=== PATIENT | female | born 1985 | race Caucasian/White ===

== ENCOUNTER → 2018-01-10 | Outpatient (CLI) | payer BC ==
[2014-11-05 14:42] VITALS: BMI 29.0
[~2018-01-10] MED LIST: ACET-1718 PO; IBUP800T37 PO; OMEP40CA48 PO; [UNRECOGNIZED DRUG - CODE] IM
[2018-01-10 10:07] LABS: PLATELET COUNT, AUTOMATED 193 K/uL (150-450)
== END ==
LOC: LAB 09:26
PROVIDERS: ATTEND Student in an Organized Health Care Education/Training Program
DX: Z34.91 Encounter for supervision of normal pregnancy, unspecified, first trimester (principal); B96.89 Other specified bacterial agents as the cause of diseases classified elsewhere
CPT/HCPCS: 36415; 81001; 85025; 86592; 86762; 86787; 86850; 86900; 86901; 87088; 87340

== ENCOUNTER → 2018-02-02 | Outpatient (CLI) | payer BC ==
[2014-11-05 14:42] VITALS: BMI 29.0
== END ==
LOC: LAB 10:00
PROVIDERS: ATTEND Obstetrics & Gynecology
DX: O36.80X0 Pregnancy with inconclusive fetal viability, not applicable or unspecified (principal)
CPT/HCPCS: 36415; 84702

== ENCOUNTER 2018-02-04 09:55 | Day surgery (SDC) | payer BC ==
[2014-11-05 14:42] VITALS: Ht 157.5 cm; Wt 54.0 kg
[~2018-02-04] VITALS: Ht 157.5 cm; Wt 54.0 kg
[~2018-02-04 09:55] MED LIST changes: -DOXY-229 PO; -HYDR-4309 PO
[2018-02-04 12:34] VITALS: BP 114/73
[2018-02-04] MEDS ORDERED: SCOPOLAMINE 1.5 MG PATCH TD ONE (13:00)
[2018-02-04] MEDS ORDERED: MIDAZOLAM 2 MG/2 ML VIAL IVP PRN (13:00)
[2018-02-04] MEDS ORDERED: APREPITANT 40 MG CAP PO ONE (13:00)
[2018-02-04] MEDS ORDERED: NORMOSOL R SOLN(*) 1000 ML BAG 1,000 ML IV PRN (13:00)
[2018-02-04] MEDS ORDERED: DOXYCYCLINE HYCL 100 MG TAB PO ONE (13:00)
[2018-02-04] MEDS ORDERED: FAMOTIDINE 20 MG TAB PO ONE (13:00)
[2018-02-04] MEDS ORDERED: LIDOCAINE/SOD BICARB 8.4% SYR ID ONE (13:00)
[2018-02-04] MEDS ORDERED: fentaNYL CITR 100 MCG/2 ML AMP ONE (13:17)
[2018-02-04] MEDS ORDERED: PROPOFOL EMUL(*) 10MG/ML 20 ML 20 ML ONE (13:18)
[2018-02-04] MEDS ORDERED: ONDANSETRON 4 MG/2 ML VIAL ONE (13:18)
[2018-02-04] MEDS ORDERED: SUGAMMADEX SOD 500 MG/5 ML SDV ONE (13:18)
[2018-02-04] MEDS ORDERED: LIDOCAINE MPF 1% 5 ML VIAL ONE (13:18)
[2018-02-04] MEDS ORDERED: DEXAMETHASONE SOD PHOS 10MG/ML ONE (13:18)
[2018-02-04] MEDS ORDERED: ROCURONIUM BROM 10 MG/ML 10 ML ONE (13:18)
[2018-02-04] MEDS ORDERED: ePHEDrine 25 MG/5 ML DISP.SYR IVP ONE (14:30)
[2018-02-04] MEDS ORDERED: LR(*) 1000 ML BAG 1,000 ML IV ONE (14:54)
[2018-02-04] MEDS ORDERED: ONDANSETRON 4 MG/2 ML VIAL IVP PRN (14:55)
--- NOTE | 2018-02-04 15:02 | Post Operative Note ---
Operative Note - ENTRY LEVEL ACCOUNTANT Operative Day Date: Feb 04, 2018 Time: 14:55 Physicians Surgeon: Reed Reardon Anesthesia: GET Diagnosis Pre-Op Diagnosis: 32 y/o @ 9 weeks gestation Missed AB Post-Op Diagnosis: same Procedure Findings: Uterus 8-9 week size. Spotting from cervix noted at start of procedure. Sound 8 cm. Bleeding minimal post operatively Procedure(s): Suction D&C Specimen Removed:(Maybe N/A): Products of Conception Complications: 0 known Fluids Fluids: 1700 cc LR u/0 50 cc Estimated Blood Loss: 100 Dictated Date OP Note Dictated: Feb 04, 2018 REED REARDON DO Feb 04, 2018 15:02
[2018-02-04] MEDS ORDERED: DOXY-229 PO (15:05)
[2018-02-04] MEDS ORDERED: IBUP800T37 PO (15:05)
[2018-02-04] MEDS ORDERED: HYDR-4309 PO (15:05)
--- NOTE | 2018-02-04 15:08 | OB/GYN Discharge Summary ---
Discharge Summary Reason for Hosp/Final Diag: (1) Missed Status: Acute Hospital Course & Plan: Pt presented for a scheduled D&C. Underwent procedure with out any difficulty. See operative report for details of procedure. Pt was discharged home once ambulatory, voiding, and tolerating po intake. Lates Vital Signs Vital Signs Date Time Temp Pulse Resp B/P (MAP) Pulse Ox O2 Delivery O2 Flow Rate FiO2 02/04/18 12:34 98.4 56 16 114/73 (87) 95 Room Air Weight (Pounds): 119 Condition: Improved Discharge: Home Home Meds Active Scripts Hydrocodone Bit/Acetaminophen (NORCO 5-325 TABLET) 1 Each Tablet, 1 EACH PO Q4- 6H Y for PAIN, #10 TAB 0 Refills Prov:REED FAN DO 02/04/18 Reported Medications Betamethasone 12 MG VIAL (Betamethasone 12 mg/2 ml-Water) Unknown Strength Vial , IM NOW, VIAL IM now, repeat in 24 hours 12/03/17 Discontinued Scripts Omeprazole (OMEPRAZOLE) 40 Mg Capsule., 40 MG PO QDAY for 30 Days, #30 CAP Prov:RAINER MANN JR, MD 12/02/17 [facility] [phone], Dr. Pascual [phone] Follow up in: 2 wks PO Discharge Diet: As Tolerates, Resume Prior Admit Diet, Increase Fluid Intake Discharge Activity: As Tolerates, Pelvic Rest REED FAN DO Feb 04, 2018 15:08
[2018-02-04 15:30] VITALS: BP 125/64
[2018-02-04 16:00] VITALS: BP 112/59
[2018-02-04 16:30] VITALS: BP 115/61
[2018-02-04 16:32] VITALS: BP 112/55
[2018-02-04] MEDS ORDERED: IBUPROFEN 800 MG TAB PO SCH (17:00)
--- NOTE | 2018-02-04 17:02 | OPERATIVE REPORT 1 ---
EVENT DATE: February 04, 2018 SURGEON: Topher Reardon DO ANESTHESIOLOGIST: Yazan Victor MD ANESTHESIA: General endotracheal intubation. PREOPERATIVE DIAGNOSES 1. A 32-year-old 2, para 1, at 9 weeks' gestation. 2. Missed . POSTOPERATIVE DIAGNOSES 1. A 32-year-old 2, para 1, at 9 weeks' gestation. 2. Missed . 3. Delivered. PROCEDURE PERFORMED Suction dilatation and curettage. FINDINGS Uterus 8 to 9 weeks' size. There was spotting noted from cervix at start of procedure. Hemostasis noted postoperatively. PATHOLOGY Products of conception. ESTIMATED BLOOD LOSS 100 mL INTRAVENOUS FLUIDS Lactated Ringer's 1700 mL URINE OUTPUT 50 mL COMPLICATIONS None known. CONDITION Stable times one to PACU, then recovery. COUNTS Correct times two for all needles, laps, sponges, and instruments. INDICATIONS AND CONSENT The patient is a 32-year-old 2, para 1, who presented to clinic earlier this week for a new OB visit. She was expected to be 9 weeks' . She underwent vaginal ultrasound that showed a gestational sac with a yoke sac. She underwent quantitative hCG measuring that was greater than 100,000. Repeat hCG showed a decreasing quantitative hCG. Patient was counseled on the options for management to include: 1) Expectant management which would allow for the natural spontaneous passing of products of conception. 2) The second option was medical management which would speed up the natural process. This would be done by taking some pills at home which would cause increased bleeding, but patient would be able to miscarry in the comfort of her own home. 3) The third option was a surgical option. This would require the patient to go to the operating room, go to sleep for the surgical procedure secondary to pain and discomfort with the procedure. Patient opted for surgical procedure as she [place] be [place] out of the [place] and wanted to have everything resolved as soon as possible. Patient was counseled and consented appropriately. She was scheduled for suction D and C. DESCRIPTION OF PROCEDURE The patient was taken to the operating room where she was placed in the dorsal supine position. She then underwent general endotracheal intubation. Once anesthesia was achieved, she was placed in the dorsal lithotomy position. She was prepped and draped in the usual sterile manner. A straight catheter was then used to drain the bladder. A single valve speculum was placed in the vagina. Cervix was easily visualized and grasped with an Allis clamp. Uterus was sounded to approximately 8 cm. The cervix was dilated by using sequential dilation with a Hegar dilator. Once at a 9, an 8 suction curette was asked for. Suction curette was easily placed through cervix. Suction was turned on. Curette was applied in a circumferential manner in the uterus on multiple passes until bleeding was noted to be minimal. Once bleeding was minimal, the procedure was terminated. The patient had the Allis clamp removed. The cervix was visualized with minimal bleeding noted postoperatively. Speculum was removed from the vagina. The patient was cleaned. She was then awoken and transferred to the recovery room in stable condition [facility]
== END 2018-02-04 15:25 | disposition home or self-care (01) ==
LOC: OR 09:55
PROVIDERS: ATTEND Student in an Organized Health Care Education/Training Program
DX: O02.1 Missed abortion (principal)
CPT/HCPCS: 59820; 88305; J1100; J2001; J2250; J2405; J2704; J3010; J8501

== ENCOUNTER → 2018-02-04 | Outpatient (CLI) | payer BC ==
[2014-11-05 14:42] VITALS: BMI 29.0
[~2018-02-04] MED LIST changes: +DOXY-229 PO; +HYDR-4309 PO
== END ==
LOC: LAB 07:11
PROVIDERS: ATTEND Obstetrics & Gynecology
DX: O36.80X0 Pregnancy with inconclusive fetal viability, not applicable or unspecified (principal)
CPT/HCPCS: 36415; 84702

== ENCOUNTER → 2018-04-25 | Outpatient (CLI) | payer BC ==
[2014-11-05 14:42] VITALS: BMI 29.0
[~2018-04-25] MED LIST changes: +BETA15CR36 TP; +DOXY-229 PO; +HYDR-4309 PO
[2018-04-25 09:42] LABS: PLATELET COUNT, AUTOMATED 209 K/uL (150-450)
== END ==
LOC: LAB 08:14
PROVIDERS: ATTEND Obstetrics & Gynecology
DX: Z34.91 Encounter for supervision of normal pregnancy, unspecified, first trimester (principal)
CPT/HCPCS: 36415; 81001; 85025; 86592; 86703; 86762; 86850; 86900; 86901; 87088; 87340

== ENCOUNTER → 2018-05-18 | Outpatient (CLI) | payer BC ==
[2014-11-05 14:42] VITALS: BMI 29.0
== END ==
LOC: LAB 08:43
PROVIDERS: ATTEND Obstetrics & Gynecology
DX: Z34.91 Encounter for supervision of normal pregnancy, unspecified, first trimester (principal); Z11.3 Encounter for screening for infections with a predominantly sexual mode of transmission; Z11.4 Encounter for screening for human immunodeficiency virus [HIV]
CPT/HCPCS: 87491; 87591

== ENCOUNTER → 2018-07-13 | Outpatient (CLI) | payer BC ==
[2014-11-05 14:42] VITALS: BMI 29.0
[~2018-07-13] MED LIST changes: +FLU60SYR36 IM; -HYDR-4309 PO; +HYDR-653 PO; +PREN-127 PO
== END ==
LOC: LAB 10:43
PROVIDERS: ATTEND Obstetrics & Gynecology
DX: O09.522 Supervision of elderly multigravida, second trimester (principal)
CPT/HCPCS: 36415; 82105

== ENCOUNTER → 2018-08-15 | Outpatient (CLI) | payer BC ==
[2014-11-05 14:42] VITALS: BMI 29.0
--- NOTE | 2018-08-15 16:54 | RADIOLOGY IMAGING REPORT ---
FACILITY: [facility] PATIENT NAME: Giselle Alves : 1985 MR: [id number] V: [id number] EXAM DATE: ORDERING PHYSICIAN: TOI BUCKLEY TECHNOLOGIST: Location: [facility] Patient: Giselle Alves : 1985 Visit/Account:[id number] Date of Sevice: 08/15/2018 ADDENDUM #1 The estimated due date was apparently reported incorrectly by technologist notation. The correct ges tational age by LMP is 20 weeks and five days.. The BPD measurement was re-imaged by technologist soila brooks and the value was changed from 4.76 cm to 4.[address] the estimated gestational age by measurements at 20 weeks and four days which corresponds to the estimated gestational age by LMP of 20 weeks and five days. Additional changes are as follow s: BPD: 28th percentile HC: 34th percentile AC.: 41st percentile FL: 40th percentile Estimated weight 367 g +/- 54 g, 40th percentile percentile Report Dictated By: Liss Hood MD at 08/16/2018 3:25 PM Report E-Signed By: Liss Hood MD at 08/16/2018 3:39 PM ORIGINAL REPORT [facility] OB ANATOMICAL SURVEY HISTORY: Anatomic survey COMPARISON: None. TECHNIQUE: Transabdominal imaging was performed for assessment of the fetus and maternal pelvic s tructures. Transvaginal imaging was not performed. FINDINGS: Intrauterine gestations: One. presentation: Breech., Variable heart rate: 142 bpm. Amniotic fluid volume: Normal; GHAZAL 15.13 cm; MVP 4.08 cm. Placenta: Anterior. Uterus: Gravid, otherwise grossly unremarkable where visualized. Maternal adnexa/ovaries: Grossly unremarkable, ovaries not visualized. Cervix: Grossly long and closed. Gestational Parameters: BPD: 4.76 cm, 10th percentile HC: 18.22 cm, 8th percentile AC: 15.46 in meters, 16th percentile FL: 3.4 cm, 14th percentile Average ultrasound age (AUA): 20 weeks/ five days Estimated age based on LMP: 21 weeks/ four days Estimated weight (EFW): 368 grams +/- 54 grams, 9th percentile Anatomic Survey: Intracranial structures, 4-chamber heart, stomach, kidneys, urinary bladder, spine, 3-vessel cord and cord insertion are unremarkable. Two upper and two lower extremities visualized. IMPRESSION: Single viable fetus in variable breech presentation with an estimated gestational age of 20 weeks and five days by measurements. Estimated gestational age by LMP is 21 weeks and four days. Estimated f etal weight is 368 g, 9th percentile Report Dictated By: Liss Hood MD at 08/15/2018 4:42 PM Report E-Signed By: Liss Hood MD at 08/15/2018 4:49 PM DELILAHN:ADIN
== END ==
LOC: RAD 08:00
PROVIDERS: ATTEND Obstetrics & Gynecology
DX: O09.522 Supervision of elderly multigravida, second trimester (principal)

== ENCOUNTER → 2018-10-05 | Outpatient (CLI) | payer BC ==
[2014-11-05 14:42] VITALS: BMI 29.0
[~2018-10-05] MED LIST changes: +DIPH0.5D12 IM
[2018-10-05 09:46] LABS: PLATELET COUNT, AUTOMATED 151 K/uL (150-450)
== END ==
LOC: LAB 08:17
PROVIDERS: ATTEND Obstetrics & Gynecology
DX: Z34.92 Encounter for supervision of normal pregnancy, unspecified, second trimester (principal)
CPT/HCPCS: 36415; 82950; 85025

== ENCOUNTER → 2018-11-30 | Outpatient (CLI) | payer BC ==
[2014-11-05 14:42] VITALS: BMI 29.0
[~2018-11-30] MED LIST changes: -DIPH0.5D12 IM; +DIPH0.5S2 IM
== END ==
LOC: LAB 10:16
PROVIDERS: ATTEND Obstetrics & Gynecology
DX: Z36.85 Encounter for antenatal screening for Streptococcus B (principal)
CPT/HCPCS: 87081

== ENCOUNTER 2018-12-21 14:01 | Outpatient (CLI) | payer BC ==
[~2018-12-21] VITALS: Ht 157.5 cm; Wt 68.9 kg
[2018-12-21 14:45] VITALS: BP 136/61; Ht 157.5 cm; Wt 68.9 kg
== END 2018-12-21 16:00 | disposition home or self-care (01) ==
LOC: L&D 14:01 → UNDOADMIN 14:01 → OB 14:01 → L&D 16:00 → UNDODISIN 16:00 → EDSTATUS 12-23 07:07
PROVIDERS: ATTEND Obstetrics & Gynecology
DX: O47.1 False labor at or after 37 completed weeks of gestation (principal); Z3A.39 39 weeks gestation of pregnancy
CPT/HCPCS: 84112; 99213

== ENCOUNTER 2018-12-28 12:20 | Outpatient (CLI) | payer BC ==
[~2018-12-28] VITALS: Ht 157.5 cm; Wt 72.1 kg
[2018-12-28 12:44] VITALS: BP 110/68; BMI 29.1
[2018-12-29 05:03] VITALS: Ht 157.5 cm; Wt 72.1 kg
[2018-12-29] MEDS ORDERED: IBUP800T37 PO (21:11)
[2018-12-29] MEDS ORDERED: LOR5/325 PO (21:11)
[2019-01-10] MEDS ORDERED: MISO200T59 PV (09:38)
[2019-01-10] MEDS ORDERED: METH0.2T6 PO (09:38)
== END 2018-12-28 14:09 | disposition home or self-care (01) ==
LOC: OB 12:20 → L&D 12:20 → OB 12:20 → UNDOADMIN 12:20 → L&D 14:09 → UNDODISIN 14:09 → EDSTATUS 12-30 16:08
PROVIDERS: ATTEND Obstetrics & Gynecology
DX: O26.893 Other specified pregnancy related conditions, third trimester (principal); Z3A.39 39 weeks gestation of pregnancy
CPT/HCPCS: 59025; 84112; 99213

== ENCOUNTER 2018-12-29 04:23 | Inpatient (IN) | payer BC ==
[~2018-12-29] VITALS: Ht 157.5 cm; Wt 69.4 kg
[2018-12-29 05:03] VITALS: Ht 157.5 cm; Wt 69.4 kg
[2018-12-29 05:20] VITALS: BP 119/56
[2018-12-29] MEDS: LR(*) 1000 ML BAG 1,000 ML IV PRN ×3 (05:57→14:47)
[2018-12-29 06:02] LABS: PLATELET COUNT, AUTOMATED 129 K/uL (150-450)
[2018-12-29] MEDS ORDERED: LR(*) 1000 ML BAG 1,000 ML IV SCH (06:18)
[2018-12-29] MEDS ORDERED: ceFAZolin(*) 2GM/D5W 50ML 50 ML IVPB PRN (06:18)
[2018-12-29] MEDS ORDERED: FAMOTIDINE(*) 20MG/50ML PREMIX 50 ML IVPB PRN (06:18)
[2018-12-29] MEDS ORDERED: OXYTOCIN 30 UNIT/NS 500 ML 500 ML IV PRN ×2 (06:18→10:00)
[2018-12-29] MEDS ORDERED: METOCLOPRAMIDE 10 MG/2 ML SDV IVP PRN (06:20)
[2018-12-29] MEDS ORDERED: LIDOCAINE 1% LOCAL 300 MG/30ML INJ PRN (06:20)
[2018-12-29] MEDS ORDERED: fentaNYL CITR 100 MCG/2 ML AMP IVP PRN (06:20)
[2018-12-29] MEDS ORDERED: MISOPROSTOL 25 MCG CAP PO ONE (06:40)
[2018-12-29] MEDS ORDERED: MISOPROSTOL 25 MCG CAP ONE (06:41)
[2018-12-29] MEDS ORDERED: MISOPROSTOL 100 MCG TAB PO ONE (06:45)
[2018-12-29] MEDS ORDERED: MISOPROSTOL 100 MCG TAB ONE (06:49)
[2018-12-29] MEDS ORDERED: FENTANYL/ROPIVACAINE 100 ML BAG EPI PRN (07:15)
[2018-12-29] MEDS ORDERED: CITRIC ACID/SOD CIT 15 ML UDC PO PRN (07:15)
[2018-12-29] MEDS ORDERED: LIDOCAINE/PF 2% 200MG/10ML AMP 200 MG/10 ML AMPUL EPI PRN (07:15)
[2018-12-29] MEDS ORDERED: BUPIVACAINE 0.25% MPF INJ EPI PRN (07:15)
[2018-12-29] MEDS ORDERED: BUPIVACAINE 0.5% INJ 30ML VIAL EPI PRN (07:15)
[2018-12-29] MEDS ORDERED: LIDO/EPI 2% MPF 1:200,000 20ML EPI PRN (07:15)
[2018-12-29] MEDS ORDERED: ONDANSETRON 4 MG/2 ML VIAL IVP PRN (07:15)
[2018-12-29] MEDS ORDERED: fentaNYL CITR 100 MCG/2 ML AMP IT PRN (07:15)
[2018-12-29] MEDS ORDERED: TERBUTALINE SULF 1 MG/ML VIAL SUBQ PRN (08:50)
[2018-12-29] MEDS ORDERED: SERTRALINE HCL 50 MG TAB PO SCH (09:00)
[2018-12-29] MEDS ORDERED: FERROUS GLUCONATE 324 MG TAB PO SCH (09:00)
[2018-12-29] MEDS ORDERED: ePHEDrine 25 MG/5 ML DISP.SYR IVP ONE (11:40)
--- NOTE | 2018-12-29 12:23 | History & Physical ---
History of Present Illness : 3 Para or TPAL: 1 EDC per U/S: December 29, 2018 Estimated Gestational Age: 40.0 Chief Complaint Leaking fluid History of Present Illness 33-year-old presents at 40 weeks with SROM. She 1st started noticing leaking of fluid this morning. She is having some contractions, but nothing significant. She is also having some light vaginal bleeding. She reports good movement. She denies any preeclampsia symptoms. Her care is by IMG. is complicated by AMA (normal [id number]). She is GBS negative. History Patient's Blood Type: A Positive Rubella Status: Immune Group B Strep Screen: Negative Obstetrical History: G1: 2015: (7#3oz) G2: 2018: SAB G3: Current Allergies: Coded Allergies: No Known Drug Allergies (Unverified , 11/05/14) Social History: No T/E/D. . Family History: Patient reports no known family medical history. Med Rec Home Meds Reported Medications Vits W-Ca,Fe,Fa(<1MG) ( VITAMINS) 1 Each Tablet, 1 EACH PO DAILY, TAB 06/01/18 Review of Systems Constitutional: No Fever Neurological: No Syncope Eyes: No Vision Change Cardiovascular: No Chest Pain Respiratory: No Shortness of Breath, No Cough Gastrointestinal: No Nausea, No Vomiting, No Diarrhea Genitourinary: No Dysuria Musculoskeletal: No Pain Psychiatric: No Depression, No Anxiety Exam General Exam Vital Signs Vital Signs Date Time Temp Pulse Resp B/P (MAP) Pulse Ox O2 Delivery O2 Flow Rate FiO2 12/29/18 05:20 97.9 62 20 119/56 (77) 97 Room Air General Apperance: Alert/Awake/No Acute Distress Neuro: No Gross deficits Eyes: Normal Extraocular Movement & Vison Cardiovascular: Regular Rate and Rhythm Respiratory: No Respiratory Distress, Clear to Auscultation Abdomen: Gravid - Non-Tender : Normal Musculoskeletal: No Weakness/Pain Extremities: No Cyanosis,Clubbing or Edema Integumentary: Skin Intact without Lesions or Rash Psychological: Alert & Oriented X3, Appropriate Mood & Affect Vaginal Discharge/Fluid?: Bloody Show, Clear Fluid Cervical Dialation: 3 Cervical Effacement (%): 50 Cervical Consistency: Soft Cervical Position: Posterior Station: -2 Presentation: Vertex Uterine Contractions(Q min): 10 Uterine Contraction Strength: Mild UC Resting Tone: Soft Fetus Feeling Movement?: Yes FHT Category: I Medical Decision Making Data Points Result Diagram: 12/29/18 0543 Assessment and Plan Problems: (1) SROM (spontaneous rupture of membranes) Assessment & Plan: 33-year-old presents at 40 weeks with SROM. (2) 40 weeks gestation of TOI BUCKLEY MD December 29, 2018 07:45
--- NOTE | 2018-12-29 12:51 | Labor Progress Note ---
Labor Subjective Progress Notes Subjective Patient requested an epidural. Otherwise, no concerns. Labor Objective Vital Signs Vital Signs Date Time Temp Pulse Resp B/P (MAP) Pulse Ox O2 Delivery O2 Flow Rate FiO2 12/29/18 05:20 97.9 62 20 119/56 (77) 97 Room Air Vaginal Discharge/Fluid?: Clear Fluid Cervical Dialation: 5 Cervical Effacement (%): 70 Cervical Consistency: Soft Cervical Position: Posterior Station: -2 Presentation: Vertex Uterine Contractions(Q min): 3 Uterine Contraction Strength: Moderate UC Resting Tone: Soft Fetus FHT Category: I General Exam General Appearance: Alert/Awake/No Acute Distress Abdomen: Gravid - Non-Tender Extremities: No Cyanosis,Clubbing or Edema Integumentary: Skin Intact without Lesions or Rash Psychological: Alert & Oriented X3, Appropriate Mood & Affect Other Result Diagram: 12/29/18 0543 Assessment and Plan Problems: (1) SROM (spontaneous rupture of membranes) Assessment & Plan: Patient is doing well. She is now on Pitocin after one dose of oral Cytotec. She is receiving an epidural for pain control. AROM of forebag with clear fluid. (2) 40 weeks gestation of TOI BUCKLEY MD December 29, 2018 12:24
--- NOTE | 2018-12-29 13:11 | Anesthesia OB Pre-Anes Eval ---
History of Present Illness Anesthesia Start Date: December 29, 2018 Anesthesia Start Time: 11:55 OB Anesthesia Diagnosis: spontaneous ROM Current Complication: other (AMA) EDC: December 29, 2018 : 3 Para: 1 Vital Signs: BP 110/72 HR 58 Oxygen sat 96% RA RR 16 Result Diagram: 12/29/18 0543 Height (Inches): 62.00 Weight (Pounds): 153 Past Medical History Medical History: no pertinent history Surgical History: tonsillectomy (T & A), other (D&C) Previous Anesthesia: general, epidural Hx Anesthesia Reactions: Yes (PONV) Hx Family Anesthesia Reaction: No Home Meds Reported Medications Vits W-Ca,Fe,Fa(<1MG) ( VITAMINS) 1 Each Tablet, 1 EACH PO DAILY, TAB 06/01/18 Allergies: Coded Allergies: No Known Drug Allergies (Unverified , 11/05/14) Anesthesia OB ROS Airway Class: l GI ROS: clear liquids ASA Classification: 2 Assessment and Plan Anesthesia Plan: LEB Assessment: Landmarks for epidural placement easily identified / palpated Assessment Lungs clear to auscultation bilaterally, RRR, no MRG, no syncope, no edema, denies SOB Denies numbness, tingling or pain in extremities. CARLOS INMAN CRNA December 29, 2018 13:11
--- NOTE | 2018-12-29 13:25 | Procedure Note ---
Anesthetic Placement Note Anesthesia Plan: LEB Permit for Anesthesia Signed: Yes (Risks and benefits of PCEA (continuous epidural catheter analgesia) explained to patient and , who verbalize un derstanding and desire to proceed. Separate paper consent form signed.) Anesthesia Technique: Patient Sitting Anesthesia Prep: Chlorhexidine (no tint in chlorhexidine. Betadine also used.) Interspace: L 3-4 Local Anesthetic: 1% Lidocaine, 25 Gauge Needle Amount Local - cc's: 2 Anesthesia Needle: 17g Touhy/Schliff Anesthesia Attempts: 1 Loss of Resistance: Normal Saline (very easy placement. Easy feel of ligaments and good crisp JUANA.) Depth of JUANA (cm): 5.25 Cerebral Spinal Fluid: No Catheter Insertion (cm): 5 (easy thread at 1212 pm) Catheter Type: Murray - Spring Wound (secured 10 cm at skin) Epidural Dressing: Tegaderm (tincture of benzoin under dressing) Anesthesia Tray: Lot Number ([id number]), Expiration Date (04/08/2020), Reference Number ([id number]) Comment: very good cooperation by patient. Tolerated well Anesthesia Medications: Epidural Test Dose: 1.5 Lido/Epi (1:200,000), Dose - mL (3), Time (1214), Negative (No signs or symptoms of IV or intrathecal injection) Epidural Loading Dose: Dose - ml (6), Time (1215), Other (additional clinician bolus of 7 ml (infusion solution) at 1229) Epidural Infusion: 0.2% Ropivicaine, With Fentanyl 2mcg/ml, Start Time: (1229) Epidural Pump Setting: Bolus Dose - mL (7), Lockout - Minutes (30), Maintenance Rate - mL/hr (6), Maximum per Hour - mL (20) Complications: None Comment: vital signs stable during and following epidural placement and loading doses. See RN charting for VS documentation CARLOS INMAN CRNA December 29, 2018 13:25
[2018-12-29] MEDS ORDERED: BENZOCAINE 20% 60 ML BTL TP PRN (18:10)
[2018-12-29] MEDS ORDERED: LANOLIN OINT 7 GM TUBE TP PRN (18:10)
[2018-12-29] MEDS ORDERED: HYDROCORTISONE 2.5% CR 30GM TB PR PRN (18:10)
[2018-12-29] MEDS ORDERED: MAGNESIUM HYDROXIDE* 30ML UDCP PO PRN (18:10)
[2018-12-29] MEDS ORDERED: GLYCERIN/WITCH HAZEL LEAF 1 PK TP PRN (18:10)
[2018-12-29] MEDS ORDERED: APAP/HYDROCODONE 325/5 TAB PO PRN (18:10)
[2018-12-29] MEDS ORDERED: ACETAMINOPHEN 325 MG TAB PO PRN (18:10)
[2018-12-29] MEDS: IBUPROFEN 800 MG TAB PO SCH (19:18)
--- NOTE | 2018-12-29 19:29 | Anesthesia Progress Note ---
Progress/Maintenance Anesthesia Note Date: December 29, 2018 Anesthesia Note Time: 16:10 Pain Intensity: 1 Pump: On Pump Rate (ML/HR): 7 Sensory Level: T8-9 Motor Level: Bending Knees-Bilateral CARLOS INMAN CRNA December 29, 2018 19:29
--- NOTE | 2018-12-29 19:34 | Anesthesia Progress Note ---
Progress/Maintenance Anesthesia Note Date: December 29, 2018 Anesthesia Note Time: 19:21 Pump: Off Motor Level: Bending Knees-Bilateral, Other (Full sensory and motor function returned) Position: Semi-Fowlers Assessment and Plan Anesthesia Plan: LEB Assessment Epidural pump stopped at 1742. Full sensory and motor function back at time of note Anesthesia Stop Day: December 29, 2018 Anesthesia Stop Time: 17:42 Epidural Catheter Removal: Yes, Removed by: (Nick Inman CRNA) Removal Date: December 29, 2018 Removal Time: 19:20 NICK INMAN CRNA December 29, 2018 19:34
[2018-12-29 20:00] VITALS: BP 109/67
--- NOTE | 2018-12-29 20:38 | OB Delivery Note ---
Delivery Note Vaginal Delivery Type: Spont. Vaginal Delivery Delivery Date: December 29, 2018 Delivery Time: 17:42 Estimated Gestational Age(wks): 40.0 Length of Labor Stage II (hrs): 0.6 Labor Stage III (minutes): 12 Delivery Anesthesia: Epidural Infant Sex: Female Weight (gms): 3420 Apgars: 1 Minute (7), 5 Minute (9) Repair Needed: 2nd Degree Estimated Blood Loss: 200 Delivery Complications: Nuchal Cord Notes: Compound presentation of left arm (posterior arm) TOI BUCKLEY MD December 29, 2018 20:38
[2018-12-29] MEDS ORDERED: LOR5/325 PO (21:11)
[2018-12-29] MEDS ORDERED: IBUP800T37 PO (21:11)
--- NOTE | 2018-12-29 21:27 | DELIVERY NOTE ---
DELIVERY DATE: December 29, 2018 SURGEON: Grazyna Pascual MD ANESTHESIA: Epidural by Nick Monge CRNA. PREOPERATIVE DIAGNOSIS Intrauterine at 40 weeks' gestation, presenting with premature rupture of membranes. POSTOPERATIVE DIAGNOSES 1. Intrauterine at 40 weeks' gestation, presenting with premature rupture of membranes. 2. Delivery of a viable female infant at 1742 hours, weighing 3420 grams with Apgars of 7 at one minute and 9 at five minutes. PROCEDURES 1. Spontaneous vaginal delivery. 2. Repair of second-degree midline laceration. ESTIMATED BLOOD LOSS 200 mL. INDICATIONS FOR PROCEDURE This patient is a 33-year-old G3, P1-0-1-1, who presented at 40 weeks' gestation with spontaneous rupture of membranes. She was noted to have minimal contractions and was 1 cm dilated, 50% effaced, and -3 station. She, therefore, was administered Cytotec orally, after which time she was 3, 60, and -2. She, therefore, was administered Pitocin per protocol to induce labor. She then progressed well and progressed to complete at 1703 hours, at which time she was allowed to push. PROCEDURE The patient was noted to be complete and, therefore, was allowed to start pushing. She was able to bring the 's vertex to the perineum with spontaneous pushing. The 's vertex spontaneously delivered in the KIARA position over an intact perineum. A nuchal cord was noted, but the head did not deliver rapidly. It was rather tight; however, there was a compound presentation with a posterior arm trying to deliver with the hand near the chin. This hand was gently guided across the infant's abdomen, which allowed for delivery of the posterior arm and allowed for room for the anterior arm. This was all delivered rather quickly without any formal dystocia. The remainder of the was easily delivered. The had spontaneous cry and spontaneous movement of all four extremities. The was dried, stimulated, and the oropharynx and nasopharynx were bulb suctioned. The infant had spontaneous cry and spontaneous movement of all four extremities. The infant was passed to the mother's abdomen in good condition where nursing personnel was in attendance. The cord was clamped times two and cut by the father of the baby. Cord blood was then obtained and passed off the table. Examination of the cervix, vaginal vault, and perineum revealed a second-degree midline laceration. This was repaired using a 2-0 Vicryl in a normal fashion. Pitocin was started in the IV to help firm the uterus prior to closure of the laceration. The placenta subsequently delivered spontaneously at 1754 hours intact and was passed off the table. There was hemostasis of the laceration. All sponge and needle counts were correct at the end of this procedure. MTDD
[2018-12-29] MEDS: DOCUSATE CALCIUM 240 MG CAP PO SCH (21:37)
[2018-12-29 23:04] VITALS: BP 115/56
[2018-12-30] MEDS: IBUPROFEN 800 MG TAB PO SCH ×3 (02:04→17:41)
[2018-12-30 03:45] VITALS: BP 102/55
[2018-12-30 09:25] VITALS: BP 110/67
[2018-12-30] MEDS: DOCUSATE CALCIUM 240 MG CAP PO SCH (09:25)
--- NOTE | 2018-12-30 10:10 | OB/GYN Discharge Summary ---
Discharge Summary Reason for Hosp/Final Diag: (1) SROM (spontaneous rupture of membranes) Status: Resolved (2) 40 weeks gestation of Status: Resolved (3) care and examination Onset Date: ~ 12/29/2018 Status: Acute Hospital Course & Plan: Patient is status post day one after a normal vaginal delivery of a viable female . She sustained a second-degree laceration during delivery which was repaired. She has mild perineal discomfort today but is tolerating with ibuprofen. She reports breast-feeding is going fairly well, but sometimes she does feel she has a shallow latch. Encouraged patient to work with the nurse's today on her latch before discharge home this evening. She is up ambulating, voiding well, and passing gas. She denies headaches, vision changes, right upper quadrant pain. Her laceration is healing well with good approximation and no signs and symptoms of infection. We reviewed signs and symptoms of infection including mastitis, endometritis, and urinary tract infection. We also discussed signs and symptoms of anxiety\depression, preeclampsia signs and symptoms, and DVT. and verbalized understanding and still ready to go home this evening after babies 24-hour ch marnie. Return in [address] Pascual for a visit or sooner if needed. Lates Vital Signs Vital Signs Date Time Temp Pulse Resp B/P (MAP) Pulse Ox O2 Delivery O2 Flow Rate FiO2 12/30/18 03:45 97.8 62 18 102/55 (71) Room Air 12/29/18 20:00 94 Weight (Pounds): 153 Result Diagram: 12/29/18 0543 Condition: Improved Discharge: Home Home Meds Active Scripts Hydrocodone Bit/Acetaminophen (HYDROCODON-ACETAMINOPHEN 5-325) 1 Each Tablet, 1 EACH PO Q6H PRN for pain, #15 TAB 0 Refills Prov:TOI PASCUAL MD 12/29/18 Ibuprofen (IBUPROFEN) 800 Mg Tablet, 1 TAB PO Q8H PRN for pain, #30 TAB 0 Refills TAKE WITH FOOD EVERY 8 HOURS Prov:TOI PASCUAL MD 12/29/18 Reported Medications Vits W-Ca,Fe,Fa(<1MG) ( VITAMINS) 1 Each Tablet, 1 EACH PO DA LARISSA, TAB 06/01/18 Follow up Referrals: PRODUCTION SUPPORT SUPERVISOR - In Two Weeks @ [facility] [place] with TOI PASCUAL MD Follow up in: 2 wks PO Discharge Diet: As Tolerates, Resume Prior Admit Diet, Increase Fluid Intake Discharge Activity: As Tolerates, Pelvic Rest KATELYN GRESHAM CNM December 30, 2018 10:10
[2018-12-30 11:40] VITALS: BP 107/57
== END 2018-12-30 19:55 | disposition home or self-care (01) | DRG 807 ==
LOC: OB 04:23
PROVIDERS: ADMIT Obstetrics & Gynecology; ATTEND Obstetrics & Gynecology
PROC: 10E0XZZ Delivery of Products of Conception, External Approach (ICD-10-PCS; principal; 2018-12-29)
PROC: 0KQM0ZZ Repair Perineum Muscle, Open Approach (ICD-10-PCS; 2018-12-29)
PROC: 10907ZC Drainage of Amniotic Fluid, Therapeutic from Products of Conception, Via Natural or Artificial Opening (ICD-10-PCS; 2018-12-29)
DX: O69.81X0 Labor and delivery complicated by cord around neck, without compression, not applicable or unspecified (principal); Z37.0 Single live birth; O70.1 Second degree perineal laceration during delivery; O32.6XX0 Maternal care for compound presentation, not applicable or unspecified; Z3A.40 40 weeks gestation of pregnancy
CPT/HCPCS: 36415; 84112; 85025; 86850; 86900; 86901; J2590; J7120

== ENCOUNTER 2019-01-05 21:26 | Day surgery (SDC) | payer BC ==
[2018-12-29 05:03] VITALS: Wt 63.5 kg
[~2019-01-05 21:26] MED LIST changes: +LOR5/325 PO
[2019-01-05] MEDS ORDERED: NS(*) 0.9% 1000 ML BAG 1,000 ML IV ONE ×2 (21:30→23:10)
--- NOTE | 2019-01-05 21:30 | ER Report ---
History and Physical Time Seen By MD: 21:30 HPI/ROS CHIEF COMPLAINT: Vaginal bleeding 1 week post HISTORY OF PRESENT ILLNESS: Patient is a 33-year-old female here with complaints of vaginal bleeding one week from a normal vaginal delivery at 40 weeks gestation. Patient has been well since delivery however at approximately 1800 patient started having a gush of vaginal bleeding. Patient was put through approximately 4 medium thickness pads with significant clot formation. Patient reports having dizziness, lightheadedness however currently she is hemodynamically stable, afebrile at time of evaluation. Patient does complain of abdominal cramping pains, nausea without vomiting. REVIEW OF SYSTEMS: Constitutional: No fever, no chills. Eyes: No discharge. ENT: No sore throat. Cardiovascular: No chest pain, no palpitations. Respiratory: No cough, no shortness of breath. Gastrointestinal: + Crampy abdominal pain, no vomiting. Genitourinary: Vaginal bleeding with significant clots Musculoskeletal: No back pain. Skin: No rashes. Neurological: No headache. Allergies: Coded Allergies: No Known Drug Allergies (Unverified , 11/05/14) Home Meds Active Scripts Hydrocodone Bit/Acetaminophen (HYDROCODON-ACETAMINOPHEN 5-325) 1 Each Tablet, 1 EACH PO Q6H PRN for pain, #15 TAB 0 Refills Prov:TOI PASCUAL MD 12/29/18 Ibuprofen (IBUPROFEN) 800 Mg Tablet, 1 TAB PO Q8H PRN for pain, #30 TAB 0 Refills TAKE WITH FOOD EVERY 8 HOURS Prov:TOI PASCUAL MD 12/29/18 Reported Medications Vits W-Ca,Fe,Fa(<1MG) ( VITAMINS) 1 Each Tablet, 1 EACH PO DAILY, TAB 06/01/18 Hx Smoking: No Smoking Status: Never Smoker Exposure to Second Hand Smoke?: No Hx Alcohol Use: No Constitutional Vital Sign - Last 24 Hours 01/05/19 01/05/19 01/05/19 01/05/19 21:31 22:26 22:28 22:29 Temp 98.3 Pulse 89 65 81 84 Resp 16 18 18 20 B/P (MAP) 133/83 110/59 (76) 97/73 (81) 111/62 (78) Pulse Ox 93 94 94 95 O2 Delivery Room Air Room Air Room Air Room Air Physical Exam General Appearance: The patient is alert, has no immediate need for airway protection and no signs of toxicity. No acute distress, anxious appearing Eyes: Pupils equal and round no pallor or injection. ENT, Mouth: Mucous membranes are moist. Respiratory: There are no retractions, lungs are clear to auscultation. Cardiovascular: Regular rate and rhythm. Gastrointestinal: Abdomen is soft and + mildly tender in the lower abdominal distribution, no masses, bowel sounds normal. Neurological: No focal neurological deficits Skin: Warm and dry, no rashes. Musculoskeletal: Neck is supple non tender. Extremities are nontender, nonswollen and have full range of motion. DIFFERENTIAL DIAGNOSIS: After history and physical exam differential diagnosis was considered for vaginal bleeding including but not limited to vaginal bleeding including but not limited to retained products of conception, dysfunctional uterine bleeding, vaginal laceration, dehiscence, endometriosis Medical Decision Making Data Points Result Diagram: 01/05/19214201/05/192142 Laboratory Hematology Test 01/05/19 21:43 Red Blood Count 3.92 M/uL (4.17-5.56) Mean Corpuscular Volume 89.4 fL (80.0-96.0) Mean Corpuscular Hemoglobin 30.0 pg (26.0-33.0) Mean Corpuscular Hemoglobin Concent 33.6 g/dL (32.0-36.0) Red Cell Distribution Width 13.8 % (11.5-14.5) Mean Platelet Volume 9.1 fL (7.2-11.1) Neutrophils (%) (Auto) 84.2 % (39.4-72.5) Lymphocytes (%) (Auto) 9.2 % (17.6-49.6) Monocytes (%) (Auto) 6.1 % (4.1-12.4) Eosinophils (%) (Auto) 0.2 % (0.4-6.7) Basophils (%) (Auto) 0.3 % (0.3-1.4) Nucleated RBC Relative Count (auto) 0.0 /100WBC Neutrophils # (Auto) 11.0 K/uL (2.0-7.4) Lymphocytes # (Auto) 1.2 K/uL (1.3-3.6) Monocytes # (Auto) 0.8 K/uL (0.3-1.0) Eosinophils # (Auto) 0.0 K/uL (0.0-0.5) Basophils # (Auto) 0.0 K/uL (0.0-0.1) Nucleated RBC Absolute Count (auto) 0.00 K/uL Prothrombin Time 13.1 seconds (12.0-14.4) Prothromb Time International Ratio 0.99 Activated Partial Thromboplast Time 28 seconds (23-35) Sodium Level 142 mmol/L (137-145) Potassium Level 3.1 mmol/L (3.5-5.0) Chloride Level 108 mmol/L (98-107) Carbon Dioxide Level 22 mmol/L (22-31) Blood Urea Nitrogen 18 mg/dl (7-18) Creatinine 0.50 mg/dl (0.52-1.04) Glomerular Filtration Rate Calc > 60.0 Random Glucose 152 mg/dl (75-110) Calcium Level 8.7 mg/dl (8.4-10.2) Total Bilirubin 0.5 mg/dl (0.2-1.3) Aspartate Amino Transf (AST/SGOT) 31 U/L (0-35) Alanine Aminotransferase (ALT/SGPT) 33 U/L (0-56) Alkaline Phosphatase 95 U/L (0-126) Total Protein 6.1 g/dl (6.3-8.2) Albumin 3.4 g/dl (3.5-5.0) Chemistry Test 01/05/19 21:43 White Blood Count 13.0 k/uL (4.5-11.0) Red Blood Count 3.92 M/uL (4.17-5.56) Hemoglobin 11.8 g/dL (12.0-16.0) Hematocrit 35.1 % (34.0-47.0) Mean Corpuscular Volume 89.4 fL (80.0-96.0) Mean Corpuscular Hemoglobin 30.0 pg (26.0-33.0) Mean Corpuscular Hemoglobin Concent 33.6 g/dL (32.0-36.0) Red Cell Distribution Width 13.8 % (11.5-14.5) Platelet Count 224 K/uL (150-450) Mean Platelet Volume 9.1 fL (7.2-11.1) Neutrophils (%) (Auto) 84.2 % (39.4-72.5) Lymphocytes (%) (Auto) 9.2 % (17.6-49.6) Monocytes (%) (Auto) 6.1 % (4.1-12.4) Eosinophils (%) (Auto) 0.2 % (0.4-6.7) Basophils (%) (Auto) 0.3 % (0.3-1.4) Nucleated RBC Relative Count (auto) 0.0 /100WBC Neutrophils # (Auto) 11.0 K/uL (2.0-7.4) Lymphocytes # (Auto) 1.2 K/uL (1.3-3.6) Monocytes # (Auto) 0.8 K/uL (0.3-1.0) Eosinophils # (Auto) 0.0 K/uL (0.0-0.5) Basophils # (Auto) 0.0 K/uL (0.0-0.1) Nucleated RBC Absolute Count (auto) 0.00 K/uL Prothrombin Time 13.1 seconds (12.0-14.4) Prothromb Time International Ratio 0.99 Activated Partial Thromboplast Time 28 seconds (23-35) Glomerular Filtration Rate Calc > 60.0 Calcium Level 8.7 mg/dl (8.4-10.2) Total Bilirubin 0.5 mg/dl (0.2-1.3) Aspartate Amino Transf (AST/SGOT) 31 U/L (0-35) Alanine Aminotransferase (ALT/SGPT) 33 U/L (0-56) Alkaline Phosphatase 95 U/L (0-126) Total Protein 6.1 g/dl (6.3-8.2) Albumin 3.4 g/dl (3.5-5.0) Coagulation Test 01/05/19 21:43 Prothrombin Time 13.1 seconds Prothromb Time International Ratio 0.99 Activated Partial Thromboplast Time 28 seconds EKG/Imaging Imaging Please see results of transvaginal ultrasound ED Course/Re-evaluation ED Course Patient is a 33-year-old female here with complaints of vaginal bleeding 1 week from a vaginal delivery. Patient reportedly started bleeding at approximately 1800 and has bled through several pads with clot formation prompting ED evaluation. He medical opinion and hematocrit were stable. Patient was given Methergine, normal saline bolus. I discussed the patient with Dr. Pascual who came in to evaluate the patient. Transvaginal ultrasound demonstrated retained products of conception. Patient was given Ancef 2 g. Patient was taken to the operating room for D&C. Patient remained hemodynamicall y stable throughout course. Decision to Disposition Date: January 05, 2019 Decision to Disposition Time: 23:39 Depart Departure Latest Vital Signs Vital Signs Date Time Temp Pulse Resp B/P (MAP) Pulse Ox O2 Delivery O2 Flow Rate FiO2 01/05/19 22:29 84 20 111/62 (78) 95 Room Air 01/05/19 21:31 98.3 Impression: Primary Impression: hemorrhage Additional Impression: Vaginal bleeding Condition: Improved Disposition: ADMIT FROM ER TO OR Referrals: TOI PASCUAL MD (PCP) Problem Qualifiers Primary Impression: hemorrhage hemorrhage type: delayed hemorrhage Qualified Codes: O72.2 - Delayed and secondary hemorrhage SASKIA MORTON DO January 05, 2019 21:30
[2019-01-05 22:11] LABS: PLATELET COUNT, AUTOMATED 224 K/uL (150-450)
[2019-01-05] MEDS ORDERED: METHYLERGONOVINE MAL 0.2MG/ML IM ONE (22:15)
[2019-01-05 22:20] LABS: INR 0.99
[2019-01-05 22:29] VITALS: BP 111/62
[2019-01-05] MEDS ORDERED: ceFAZolin(*) 2GM/D5W 50ML 50 ML IVPB ONE (23:10)
--- NOTE | 2019-01-05 23:13 | History & Physical ---
History of Present Illness Chief Complaint Vaginal bleeding History of Present Illness 33yo presents PPD#7 s/p to the ED for heavy vaginal bleeding. She reports not having significant bleeding until this afternoon. She was out in public and soaked through her pants and since has been having enough bleeding to pass clots. She is also having some cramping. She is breast feeding. She denies fevers/chills. No abdominal pain, nausea, vomiting or diarrhea. Her delivery was uncomplicated and she had spontaneous delivery of the placenta. No hemorrhage during her admission for labor/delivery. History Obstetrical History: Hx 2 SVDs, 1 D&C for missed AB Past Medical History: PMH: Lichen sclerosus PSH: Tonsillectomy, suction D&C for missed AB Allergies: Coded Allergies: No Known Drug Allergies (Unverified , 11/05/14) Social History: No T/E/D. . Family History: Patient reports no known family medical history. Med Rec Home Meds Active Scripts Hydrocodone Bit/Acetaminophen (HYDROCODON-ACETAMINOPHEN 5-325) 1 Each Tablet, 1 EACH PO Q6H PRN for pain, #15 TAB 0 Refills Prov:TOI BUCKLEY MD 12/29/18 Ibuprofen (IBUPROFEN) 800 Mg Tablet, 1 TAB PO Q8H PRN for pain, #30 TAB 0 Refills TAKE WITH FOOD EVERY 8 HOURS Prov:TOI BUCKLEY MD 12/29/18 Reported Medications Vits W-Ca,Fe,Fa(<1MG) ( VITAMINS) 1 Each Tablet, 1 EACH PO DAILY, TAB 06/01/18 Review of Systems Constitutional: No Fever Neurological: No Syncope Eyes: No Vision Change Cardiovascular: No Chest Pain Respiratory: No Shortness of Breath Gastrointestinal: No Nausea, No Vomiting, No Diarrhea Genitourinary: No Dysuria Musculoskeletal: No Pain Psychiatric: Anxiety; No Depression Exam General Exam Vital Signs Vital Signs Date Time Temp Pulse Resp B/P (MAP) Pulse Ox O2 Delivery O2 Flow Rate FiO2 01/05/19 22:29 84 20 111/62 (78) 95 Room Air 01/05/19 21:31 98.3 General Apperance: Alert/Awake/No Acute Distress Neuro: No Gross deficits Eyes: Normal Extraocular Movement & Vison Cardiovascular: Regular Rate and Rhythm Respiratory: No Respiratory Distress Abdomen: Soft, Non-Tender, Non-Distended : Normal, Other (Speculum exam reveals small clots, cervix is slightly open, oozing of bright red blood from os ) Musculoskeletal: No Weakness/Pain Extremities: No Cyanosis,Clubbing or Edema Integumentary: Skin Intact without Lesions or Rash Psychological: Alert & Oriented X3, Appropriate Mood & Affect Medical Decision Making Data Points Result Diagram: 01/05/19214201/05/192142 Pre-Admit Course Medical Record Review: Yes Assessment and Plan Problems: (1) hemorrhage Assessment & Plan: 33yo presents PPD#7 s/p to the ED with hemorrhage and evidence of retained POC. She had an ultrasound performed which revealed an enlarged uterus measuring 17cm with significant clot/tissue remaining in the uterus. The official report is still pending. Based on her symptoms and this ultrasound finding, I have recommended a suction D&C for removal of clot and tissue due to hemorrhage. She was given one dose of methergine. We have discussed R/B/A and she agrees to proceed. She is breast feeding. Will plan ancef preoperatively. Problem Qualifiers (1) hemorrhage: hemorrhage type: delayed hemorrhage Qualified Codes: O72.2 - Delayed and secondary hemorrhage TOI BUCKLEY MD January 05, 2019 23:01
[2019-01-05] MEDS ORDERED: PROPOFOL EMUL(*) 10MG/ML 20 ML 20 ML ONE (23:30)
[2019-01-05] MEDS ORDERED: DEXAMETHASONE SOD 4 MG/ML VIAL ONE (23:30)
[2019-01-05] MEDS ORDERED: fentaNYL CITR 100 MCG/2 ML AMP ONE (23:30)
[2019-01-05] MEDS ORDERED: ONDANSETRON 4 MG/2 ML VIAL ONE (23:30)
[2019-01-05] MEDS ORDERED: LIDOCAINE MPF 1% 5 ML VIAL ONE (23:30)
[2019-01-05] MEDS ORDERED: KETAMINE HCL 200 MG/20 ML MDV ONE (23:33)
[2019-01-05] MEDS ORDERED: METHYLERGONOVINE MAL 0.2MG/ML ONE (23:35)
[2019-01-05] MEDS ORDERED: NORMOSOL R SOLN(*) 1000 ML BAG 1,000 ML IV PRN (23:50)
[2019-01-05] MEDS ORDERED: METOCLOPRAMIDE 10 MG/2 ML SDV ONE (23:52)
--- NOTE | 2019-01-05 23:59 | RADIOLOGY IMAGING REPORT ---
FAC[place] [facility] [place] NAME: Giselle Alves : 1985 MR: [id number] V: [id number] EXAM DATE: ORDERING PHYSICIAN: SASKIA MORTON TECHNOLOGIST: Location: [facility] Patient: Giselle Alves : 1985 Visit/Account:[id number] Date of Sevice: 01/05/2019 EXAMINATION: ENDOVAGINAL PELVIC ULTRASOUND WITH DOPPLER DATE: 01/05/2019 10:52 PM INDICATION: Vaginal bleeding one week . TECHNIQUE: Endovaginal newton scale, color, and pulsed Doppler ultrasound examination of the pelvis was performed. COMPARISON: None. FINDINGS: Uterus is anteverted and. It is enlarged, measuring 17.6 x 9.5 x 8.2 cm. There is a large amount of heterogeneous material in the endometrial canal. No definite flow within this material and color Do ppler imaging. The ovaries are not visualized. There is trace free fluid in the pelvic cavity. IMPRESSION: 1. Large volume of heterogeneous material in the endometrial canal setting of recent ; andrea ined products of conception is a consideration though it is not definitive based on this examination. 2. Nonvisualization of the ovaries. Report Dictated By: Memo Herr MD at 01/05/2019 11:51 PM Report E-Signed By: Memo Herr MD at 01/05/2019 11:54 PM WSN:[id number]
[2019-01-06] MEDS ORDERED: ONDANSETRON 4 MG/2 ML VIAL ONE (00:24)
[2019-01-06] MEDS ORDERED: KETOROLAC 30 MG/ML VIAL ONE (00:51)
[2019-01-06] MEDS ORDERED: LR(*) 1000 ML BAG 1,000 ML IV ONE (00:59)
--- NOTE | 2019-01-06 00:59 | Post Operative Note ---
Operative Note - [facility] [employer] Operative Day Date: January 06, 2019 Time: 00:58 Physicians Surgeon: Ankur Anesthesia: Osei PENA Diagnosis Pre-Op Diagnosis: hemorrhage; retained placenta Post-Op Diagnosis: Same Procedure Procedure(s): Ultrasound guided suction D&C Specimen Removed:(Maybe N/A): Retained placenta Fluids Fluids: UOP: 300cc Estimated Blood Loss: 300cc TOI BUCKLEY MD January 06, 2019 00:59
[2019-01-06] MEDS ORDERED: IBUPROFEN 800 MG TAB PO SCH (01:00)
[2019-01-06] MEDS ORDERED: METOCLOPRAMIDE 10 MG/2 ML SDV IVP PRN (01:00)
[2019-01-06] MEDS ORDERED: oxyCODON/ACET (*)5/325MG (CII) 1 TAB TAB PO PRN (01:00)
--- NOTE | 2019-01-06 01:05 | Short(Outpt) Discharge Summary ---
Discharge Summary Reason for Hosp/Final Diag: (1) hemorrhage Hospital Course & Plan: 33yo presents PPD#7 s/p to the ED with hemorrhage and evidence of retained POC. She had an ultrasound performed which revealed an enlarged uterus measuring 17cm with significant clot/tissue remaining in the uterus. The official report is still pending. Based on her symptoms and this ultrasound finding, I have recommended a suction D&C for removal of clot and tissue due to hemorrhage. She was given one dose of methergine. We have discussed R/B/A and she agrees to proceed. She is breast feeding. Will plan ancef preoperatively. Departure Discharge to: Home, Self Care Discharge Instructions Home Meds Active Scripts Hydrocodone Bit/Acetaminophen (HYDROCODON-ACETAMINOPHEN 5-325) 1 Each Tablet, 1 EACH PO Q6H PRN for pain, #15 TAB 0 Refills Prov:TOI BUCKLEY MD 12/29/18 Ibuprofen (IBUPROFEN) 800 Mg Tablet, 1 TAB PO Q8H PRN for pain, #30 TAB 0 Refills TAKE WITH FOOD EVERY 8 HOURS Prov:TOI BUCKLEY MD 12/29/18 Reported Medications Vits W-Ca,Fe,Fa(<1MG) ( VITAMINS) 1 Each Tablet, 1 EACH PO DAILY, TAB 06/01/18 Follow up Referrals: [facility]PER[facility] - In One Week @ [facility] with TOI BUCKLEY MD Diet: Regular Activity: As Tolerated Special Instructions: Pelvic rest Problem Qualifiers (1) hemorrhage: hemorrhage type: delayed hemorrhage Qualified Codes: O72.2 - Delayed and secondary hemorrhage TOI BUCKLEY MD January 06, 2019 01:05
[2019-01-06] MEDS ORDERED: NORMOSOL R SOLN(*) 1000 ML BAG 1,000 ML IV ONE (01:55)
--- NOTE | 2019-01-06 02:02 | OPERATIVE REPORT 1 ---
EVENT DATE: January 06, 2019 SURGEON: Grazyna Pascual MD ANESTHESIOLOGIST: Ag Franz MD ANESTHESIA: General endotracheal tube. PREOPERATIVE DIAGNOSIS hemorrhage with retained placenta. POSTOPERATIVE DIAGNOSIS hemorrhage with retained placenta. PROCEDURE PERFORMED Ultrasound-guided suction dilatation and curettage. SPECIMENS REMOVED Retained placenta. URINE OUTPUT 300 mL. ESTIMATED BLOOD LOSS 300 mL. INDICATIONS FOR PROCEDURE This patient is a 33-year-old 3, para 2-0-1-2, who presented on day 7 to the emergency department due to sudden-onset acute bleeding. During her evaluation, she was noted to have a 17 cm uterus with abundant clot and presumed retained placenta within. She therefore was consented for an ultrasound-guided suction dilatation and curettage. Please see history and physical for full details. DESCRIPTION OF PROCEDURE The patient was properly identified and taken to the operating room. She was prepped and draped in the usual fashion for a vaginal procedure. An abdominal ultrasound was performed, confirming an enlarged 17 cm uterus filled with clots and presumed retained placenta. A staff member was able to hold the abdominal ultrasound probe in order to allow me to visualize the fundus during this entire procedure. A speculum was placed, which revealed an open cervix without lesion. The anterior lip was grasped with an Allis clamp. The cervix was serially dilated to 12 mm without difficulty using Hegar dilators. A 12 mm suction curette was then assembled, and the suction was set to 40. The suction was relieved and the curette was advanced to the uterine fundus. The suction was then implemented and the curette was rotated in a clockwise fashion, allowing removal of abundant tissue. The tissue trap was needed to be changed three different times in order to allow for continued suction; however, after multiple passes, the uterus was then clamped down to a very small size. At this time, an 8 mm suction curette was then utilized to help remove any remaining small amount of tissue. The abdominal probe was then changed to a vaginal probe, and a vaginal ultrasound was performed by myself in order to visualize the uterus. There appeared to be a small amount of clot and/or tissue up at the fundus, which was then attempted to be removed with the 8 mm curette once again. A second transvaginal ultrasound was then performed, which revealed a relatively thin uterine lining. Uterine pressure was then applied by massage, and the bleeding slowed down significantly. The bladder was then drained of 300 mL of clear yellow urine, during which time there was no additional pooling of blood. Therefore, the speculum was removed, as well as the Allis clamp. The patient tolerated this procedure well and recovered in the postanesthesia care unit. JOSE A
[2019-01-10] MEDS ORDERED: MISO200T59 PV (09:38)
[2019-01-10] MEDS ORDERED: METH0.2T6 PO (09:38)
== END 2019-01-06 02:39 | disposition home or self-care (01) ==
LOC: ER 21:32 → OR 23:11
PROVIDERS: ATTEND Obstetrics & Gynecology
DX: O72.2 Delayed and secondary postpartum hemorrhage (principal)
CPT/HCPCS: 59160; 76830; 85025; 85610; 85730; 86850; 86900; 86901; 88305; 96360; 99284; J1100; J1885; J2001; J2210; J2405; J2704; J2765; J3010; J3490; J7030; 82040; 82247; 82310; 82374; 82435; 82565; 82947; 84075; 84132; 84155; 84295; 84450; 84460; 84520; J0690